=== PATIENT | male | born 1955 | race Caucasian/White ===

== ENCOUNTER 2021-08-02 15:57 | Emergency (ER) | payer SELFPAY ==
[~2021-08-02] VITALS: Ht 177.8 cm; Wt 75.3 kg
[2021-08-02 16:03] VITALS: BP 100/60
[2021-08-02 16:07] VITALS: BP 100/60
== END 2021-08-02 16:05 | disposition left against medical advice (07) ==
LOC: MED 15:57
DX: F10.10 Alcohol abuse, uncomplicated (principal); M79.10 Myalgia, unspecified site; Z59.00 Homelessness unspecified; Z53.21 Procedure and treatment not carried out due to patient leaving prior to being seen by health care provider